=== PATIENT | female | born 1990 | race American Indian/Alaskan Native ===

== ENCOUNTER 2018-11-08 18:33 | Emergency (ER) | payer OTHER ==
[2018-11-08] MEDS ORDERED: Hydrocortisone/Neomycin/Polymyxin B Otic Susp 10 ML Bottle EARLF ONE (18:34)
[2018-11-08 18:53] VITALS: BP 131/78
[2018-11-08] MEDS ORDERED: Clindamycin HCl 150 MG Cap PO ONE (20:38)
[2018-11-08] MEDS ORDERED: Hydrocortisone/Neomycin/Polymyxin B Otic Susp 10 ML Bottle ONE (20:39)
--- NOTE | 2018-11-08 20:43 | EDM.PDOC ---
ED HPI GENERAL MEDICAL PROBLEM - General Chief Complaint: ENT Problem Stated Complaint: LEFT EAR HURTING, ALL THE WAY AROUND Time Seen by Provider: 11/08/18 20:40 Source of Information: Reports: Patient History Limitations: Reports: No Limitations - History of Present Illness INITIAL COMMENTS - FREE TEXT/NARRATIVE: onset left ear pain last night got worse today at work. 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: Reports: Acetaminophen, Nitroglycerin Left Ear Pain Score (Numeric/FACES): 4 - Related Data Allergies Allergy/AdvReac Type Severity Reaction Status Date / Time No Known Allergies Allergy Verified 11/08/18 19:02 Home Meds: Home Meds Levonorgestrel [Mirena] 1 each IY ASDIRECTED 12/15/14 [History] Amoxicillin 1 tab PO Q6H 01/19/15 [History] Past Medical History - Past Health History Medical/Surgical History: Denies Medical/Surgical History Social & Family History - Tobacco Use Smoking Status *Q: Never Smoker Second Hand Smoke Exposure: No - Caffeine Use Caffeine Use: Reports: Energy Drinks - Recreational Drug Use Recreational Drug Use: No ED ROS ENT - Review of Systems Review Of Systems: ROS reveals no pertinent complaints other than HPI. ED EXAM, ENT - Physical Exam Exam: See Below Exam Limited By: No Limitations General Appearance: Alert, WD/WN, Mild Distress, Other (discomfort) Ears: Canal Discharge, Canal Material, Canal Swelling, TM Dullness, Other (left) Mouth/Throat: Normal Inspection Head: Atraumatic Neck: Non-Tender, Full Range of Motion Respiratory/Chest: No Respiratory Distress Cardiovascular: Regular Rate, Rhythm GI/Abdominal: Soft, Non-Tender Neurological: Alert, Oriented, Normal Cognition, Normal Gait, No Motor/Sensory Deficits Psychiatric: Tearful Skin: Warm, Dry, Normal Color Lymphatic: No Adenopathy Course - Vital Signs Last Recorded V/S: Last Vital Signs Temp 36.6 C 11/08/18 18:52 Pulse 72 11/08/18 18:52 Resp 16 11/08/18 18:52 BP 131/78 11/08/18 18:52 Pulse Ox 100 11/08/18 18:52 - Orders/Labs/Meds Meds: Medications Discontinued Medications Generic Name Dose Route Start Last Admin Trade Name Freq PRN Reason Stop Dose Admin Clindamycin HCl 150 mg 11/08/18 20:38 Cleocin PO 11/08/18 20:39 ONETIME ONE Departure - Departure Time of Disposition: 20:42 Disposition: Home, Self-Care 01 Condition: Good Clinical Impression: Otitis externa Qualifiers: Otitis externa type: diffuse Chronicity: acute Laterality: left Qualified Code( s): H60.312 - Diffuse otitis externa, left ear - Discharge Information Instructions: Otitis Externa, [id number] Additional Instructions: 1) don't get water inside ear 2) follow up at clinic rx given; clindamycin 150mg qid x 40 rx togo; corticosporin otic 2 drops qid x 1 week
== END 2018-11-08 20:46 | disposition home or self-care (01) ==
LOC: DL.ED 18:33
DX: H60.312 Diffuse otitis externa, left ear (principal)
CPT/HCPCS: 99282; A9270